=== PATIENT | male | born 1970 | race Hispanic/Latino ===

== ENCOUNTER 2021-12-07 12:30 | Outpatient (CLI) | payer OTHER | END 2021-12-07 12:31 | disposition home or self-care (01) | LOC: PET 12:30 | PROVIDERS: ATTEND Internal Medicine Hematology & Oncology | DX: C16.3 Malignant neoplasm of pyloric antrum (principal); R59.0 Localized enlarged lymph nodes | CPT/HCPCS: 78815; A9552 ==

== ENCOUNTER → 2022-03-31 | Outpatient (CLI) | payer OTHER | LOC: PET 08:00 | PROVIDERS: ATTEND Internal Medicine Hematology & Oncology | DX: C16.3 Malignant neoplasm of pyloric antrum (principal) | CPT/HCPCS: 78815; A9552 ==

== ENCOUNTER → 2022-06-22 | Outpatient (CLI) | payer OTHER | LOC: PET 09:30 | PROVIDERS: ATTEND Internal Medicine Hematology & Oncology | DX: C16.3 Malignant neoplasm of pyloric antrum (principal) | CPT/HCPCS: 78815; A9552 ==

== ENCOUNTER → 2022-08-05 | Outpatient (CLI) | payer OTHER | LOC: PET 11:45 | PROVIDERS: ATTEND Internal Medicine Hematology & Oncology | DX: C16.3 Malignant neoplasm of pyloric antrum (principal); C79.51 Secondary malignant neoplasm of bone | CPT/HCPCS: 78815; A9552 ==

== ENCOUNTER 2022-09-26 20:32 | Inpatient (IN) | payer OTHER ==
[2022-09-26 21:00] LABS: Mean Corpuscular HGB CONC 29.9 g/dL (32.0-36.0); Mean Corpuscular Hemoglobin 31.3 pg (27.0-31.0); Mean Platelet Volume 9.9 fL (7.4-10.4); RBC Distribution Width 25.3 % (11.5-14.5)
[2022-09-26 21:16] LABS: Delete Auto Diff?? YES
[2022-09-26 21:18] LABS: Manual Diff?? YES; Platelet Count 79 10x3/uL (130-400)
[2022-09-26 21:21] LABS: ALT (SGPT) 16 U/L (8-55); AST (SGOT) 29 U/L (5-34); Albumin 3.1 g/dL (3.5-5.0); Alkaline Phosphatase 767 U/L (40-110); Anion Gap 17 mmol/L (10-20); BUN (Urea Nitrogen) 14 mg/dL (8.9-20.6); Bilirubin, Total 0.8 mg/dL (0.2-1.2); Calc. Creatinine Clearance 0 mL/min (70-130); Calcium 8.4 mg/dL (7.8-10.44); Carbon Dioxide 20 mmol/L (22-29); Chloride 104 mmol/L (98-107); Estimated GFR 108; Glucose 143 mg/dL (70-105); Potassium 3.9 mmol/L (3.5-5.1); Protein, Total 6.1 g/dL (6.0-8.3); Sodium 137 mmol/L (136-145)
[2022-09-26] MEDS ORDERED: Pantoprazole 40 MG VIAL ONE (22:37)
[2022-09-26 22:42] LABS: Anisocytosis MODERATE=16-30 cells HPF (0-5); Band 18 % (5-11); CellaVision Operator ID LAB.JMM; Elliptocytes SLIGHT = 2-5 cells HPF (0-1); Large Platelets 2.9 % (0-5); Lymphocytes 32 % (21-51); Macrocytosis SLIGHT = 6-15 cells HPF (0-5); Metamyelocyte 5 % (0-0); Monocytes 4 % (0-10); Myelocyte 7 % (0-0); Neutrophil 34 % (42-75); Nucleated RBC (Manual Ct) 25 % (0); Platelet Adequacy Comment Platelets Decreased; Polychromasia MODERATE = 3-4 cells HPF (0-2); Tear Drops SLIGHT = 2-5 cells HPF (0-1); Total Cell Count 105
[2022-09-26 22:51] LABS: Mean Corpuscular Volume 104.4 fl (78.0-98.0)
[2022-09-27 00:21] VITALS: BMI 26.2
[2022-09-27] MEDS ORDERED: Ondansetron PF 4 MG/2 ML Vial IVP PRN (00:27)
[2022-09-27] MEDS ORDERED: Ondansetron ODT 4 MG TAB PO PRN (00:27)
[2022-09-27] MEDS: Acetaminophen 325 MG TAB PO PRN ×2 (01:13→06:35)
[2022-09-27] MEDS ORDERED: Fioricet 325/50/40 mg Tablet PO PRN (03:21)
[2022-09-27 06:55] LABS: Mean Corpuscular Hemoglobin 30.4 pg (27.0-31.0); RBC Distribution Width 25.5 % (11.5-14.5)
[2022-09-27 07:15] LABS: Manual Diff?? YES
[2022-09-27 07:16] LABS: Delete Auto Diff?? YES
[2022-09-27 07:48] LABS: Anion Gap 12 mmol/L (10-20); BUN (Urea Nitrogen) 11 mg/dL (8.9-20.6); Calc. Creatinine Clearance 161 mL/min (70-130); Carbon Dioxide 24 mmol/L (22-29); Chloride 104 mmol/L (98-107); Estimated GFR 114; Glucose 102 mg/dL (70-105); Potassium 3.9 mmol/L (3.5-5.1); Sodium 136 mmol/L (136-145)
[2022-09-27 08:53] LABS: Hemoglobin 6.7 g/dL (14.0-18.0); Red Blood Cell (RBC) Count 2.21 mill/uL (4.70-6.10); White Blood Cell (WBC) Count 5.6 10x3/uL (4.8-10.8)
[2022-09-27 08:55] LABS: Mean Corpuscular HGB CONC 31.9 g/dL (32.0-36.0)
[2022-09-27 08:56] LABS: Platelet Count 45 10x3/uL (130-400)
[2022-09-27 09:20] LABS: Anisocytosis MODERATE=16-30 cells HPF (0-5); Band 27 % (5-11); Hypochromia SLIGHT = 6-15 cells HPF (0-5); Large Platelets 2.9 % (0-5); Lymphocytes 14 % (21-51); Metamyelocyte 5 % (0-0); Monocytes 5 % (0-10); Myelocyte 3 % (0-0); Neutrophil 46 % (42-75); Nucleated RBC (Manual Ct) 23 % (0); Ovalocytes SLIGHT = 2-5 cells HPF (0-1); Platelet Adequacy Comment Platelets Decreased; Polychromasia MODERATE = 3-4 cells HPF (0-2); Tear Drops SLIGHT = 2-5 cells HPF (0-1); Total Cell Count 105
[2022-09-27] MEDS ORDERED: HYDROcodone/Acetaminophen 7.5/325 mg Tablet PO PRN (09:25)
[2022-09-27] MEDS ORDERED: Morphine 2 MG/ML VIAL SLOW IVP SCH (13:15)
[2022-09-27 15:10] LABS: Hemoglobin 8.4 g/dL (14.0-18.0)
[2022-09-27] MEDS ORDERED: Methocarbamol 500 MG TAB PO SCH (15:18)
[2022-09-27 17:52] VITALS: BP 128/75; TEMP 99.7
[2022-09-27] MEDS ORDERED: traMADol HCl 50 MG TAB PO SCH (18:00)
== END 2022-09-27 19:50 | disposition home or self-care (01) | DRG 543 ==
LOC: ERS 20:32 → T4-B 23:14
PROVIDERS: ADMIT Student in an Organized Health Care Education/Training Program; ATTEND Internal Medicine
PROC: 30233N1 Transfusion of Nonautologous Red Blood Cells into Peripheral Vein, Percutaneous Approach (ICD-10-PCS; principal; 2022-09-26)
DX: C79.52 Secondary malignant neoplasm of bone marrow (principal); C16.9 Malignant neoplasm of stomach, unspecified; Z79.899 Other long term (current) drug therapy; D69.6 Thrombocytopenia, unspecified; M54.2 Cervicalgia; D63.0 Anemia in neoplastic disease
CPT/HCPCS: 36415; 36430; 70450; 80048; 85025; 86850; 86900; 86901; 96374; C9113; J2272; P9016

== ENCOUNTER 2022-10-18 13:41 | Day surgery (SDC) | payer OTHER ==
[2022-10-18] MEDS ORDERED: diphenhydrAMINE 25 MG CAP PO SCH (14:00)
[2022-10-18] MEDS ORDERED: Acetaminophen 500 MG TAB PO SCH (14:00)
[2022-10-18] MEDS ORDERED: Acetaminophen 500 MG TAB ONE (14:10)
[2022-10-18] MEDS ORDERED: diphenhydrAMINE 25 MG CAP ONE (14:10)
[2022-10-18 17:03] VITALS: BP 122/67; TEMP 98.7
== END 2022-10-18 17:12 | disposition home or self-care (01) ==
LOC: ONC/OP 13:41
PROVIDERS: ATTEND Internal Medicine Hematology & Oncology
DX: D64.9 Anemia, unspecified (principal); D69.6 Thrombocytopenia, unspecified
CPT/HCPCS: 36430; 86850; 86900; 86901; P9016

== ENCOUNTER 2022-10-19 08:35 | Day surgery (SDC) | payer OTHER ==
[2022-10-19] MEDS ORDERED: diphenhydrAMINE 25 MG CAP ONE (08:44)
[2022-10-19] MEDS ORDERED: Acetaminophen 500 MG TAB ONE (08:44)
[2022-10-19] MEDS ORDERED: diphenhydrAMINE 25 MG CAP PO SCH (08:45)
[2022-10-19] MEDS ORDERED: Acetaminophen 500 MG TAB PO SCH (08:45)
[2022-10-19 11:45] VITALS: BP 141/74; TEMP 98.3
== END 2022-10-19 11:46 | disposition home or self-care (01) ==
LOC: ONC/OP 08:35
PROVIDERS: ATTEND Internal Medicine Hematology & Oncology
DX: D64.9 Anemia, unspecified (principal); D69.6 Thrombocytopenia, unspecified
CPT/HCPCS: 36430; 86850; 86900; 86901; P9016

== ENCOUNTER 2022-11-01 09:23 | Day surgery (SDC) | payer OTHER ==
[2022-11-01] MEDS ORDERED: diphenhydrAMINE 25 MG CAP PO SCH (09:45)
[2022-11-01] MEDS ORDERED: diphenhydrAMINE 25 MG CAP ONE (09:51)
[2022-11-01 15:41] VITALS: BP 138/74; TEMP 98.2
== END 2022-11-01 15:43 | disposition home or self-care (01) ==
LOC: ONC/OP 09:23
PROVIDERS: ATTEND Internal Medicine Hematology & Oncology
DX: D64.9 Anemia, unspecified (principal); D69.6 Thrombocytopenia, unspecified
CPT/HCPCS: 36430; 86850; 86900; 86901; J1642; P9016

== ENCOUNTER 2022-11-04 16:03 | Inpatient (IN) | payer OTHER ==
[~2022-11-04 16:03] MED LIST: Iopamidol-370 76% 500 ML MDV (1 ML CHARGE) ONE
[2022-11-04 16:41] LABS: Hematocrit 18.7 % (42.0-52.0); Mean Corpuscular HGB CONC 32.1 g/dL (32.0-36.0); Mean Corpuscular Hemoglobin 31.6 pg (27.0-31.0); Mean Corpuscular Volume 98.4 fl (78.0-98.0); Mean Platelet Volume 10.5 fL (7.4-10.4); RBC Distribution Width 24.7 % (11.5-14.5); White Blood Cell (WBC) Count 5.6 10x3/uL (4.8-10.8)
[2022-11-04 16:42] LABS: Delete Auto Diff?? YES; Manual Diff?? YES; Platelet Count 27 10x3/uL (130-400)
[2022-11-04 16:58] LABS: INR-International Normal Ratio 1.4; PTT 48.1 sec (22.9-36.1); Prothrombin Time 17.7 sec (12.0-14.7)
[2022-11-04 17:03] LABS: ALT (SGPT) 27 U/L (8-55); AST (SGOT) 37 U/L (5-34); Albumin 2.9 g/dL (3.5-5.0); Alkaline Phosphatase 954 U/L (40-110); Anion Gap 13 mmol/L (10-20); BUN (Urea Nitrogen) 21 mg/dL (8.9-20.6); Bilirubin, Total 0.9 mg/dL (0.2-1.2); Calc. Creatinine Clearance 0 mL/min (70-130); Calcium 8.2 mg/dL (7.8-10.44); Carbon Dioxide 19 mmol/L (22-29); Chloride 106 mmol/L (98-107); Estimated GFR 116; Globulin 2.7 g/dL (2.4-3.5); Glucose 116 mg/dL (70-105); Potassium 4.1 mmol/L (3.5-5.1); Protein, Total 5.6 g/dL (6.0-8.3); Sodium 134 mmol/L (136-145)
[2022-11-04 17:07] LABS: Troponin I Less than 0.010 ng/mL (< 0.028)
[2022-11-04 17:07] LABS: Anisocytosis SLIGHT = 6-15 cells HPF (0-5); Band 39 % (5-11); CellaVision Operator ID LAB.KB; Eosinophils 1 % (0-10); Large Platelets 1.9 % (0-5); Lymphocytes 11 % (21-51); Macrocytosis SLIGHT = 6-15 cells HPF (0-5); Monocytes 4 % (0-10); Myelocyte 1 % (0-0); Neutrophil 43 % (42-75); Nucleated RBC (Manual Ct) 9 % (0); Ovalocytes SLIGHT = 2-5 cells HPF (0-1); Platelet Adequacy Comment Significant decrease; Polychromasia MODERATE = 3-4 cells HPF (0-2); Smudge Cells 5.7 %; Tear Drops SLIGHT = 2-5 cells HPF (0-1); Total Cell Count 105
[2022-11-04 17:13] LABS: D-Dimer Test Greater than 20.00 *mcg/mL (0.27-0.43)
[2022-11-04 19:10] LABS: Bacteria/HPF None Seen HPF (None Seen); Bilirubin Negative (Negative); Blood, Urine Negative (Negative); CAUTI Indications for Culture Acute Hematuria; Clarity Clear (Clear); Glucose, Urine (Dipstick) Normal (Negative); Ketone, Urine Negative (Negative); Leukocyte Negative Leu/uL (Negative); Nitrite Negative (Negative); Protein, Urine (Dipstick) 10 mg/dL (Neg-Trace); RBC/HPF None Seen HPF (0-3); Specific Gravity, Urine 1.026 (1.002-1.036); Squamous Epithelial None Seen HPF (0-3); Urobilinogen 6 mg/dL (Less than 2); WBC/HPF 0-3 HPF (0-3)
[2022-11-04 19:13] LABS: Urine Culture Reflex No No
[2022-11-04] MEDS ORDERED: fentaNYL 50 mcg/mL 1 mL Vial ONE (19:43)
[2022-11-04] MEDS ORDERED: Pantoprazole 40 MG VIAL ONE (21:41)
[2022-11-04] MEDS ORDERED: Ondansetron PF 4 MG/2 ML Vial IVP PRN (21:56)
[2022-11-04] MEDS ORDERED: Ondansetron ODT 4 MG TAB PO PRN (21:56)
[2022-11-04] MEDS ORDERED: Acetaminophen 650 MG Suppository PR PRN (21:56)
[2022-11-04 23:59] VITALS: BMI 26.9
[2022-11-05] MEDS ORDERED: Morphine 2 MG/ML VIAL SLOW IVP PRN (00:10)
[2022-11-05 02:11] LABS: #Eosinphils 0.1 thou/uL (0.0-0.7); #Monocytes 0.7 thou/uL (0.11-0.59); #Neutrophils 4.3 thou/uL (1.40-6.50); %Basophils 0.6 % (0.0-1.0); %Eosinophils 1.7 % (0.0-10.0); %Monocytes 10.2 % (0.0-10.0); %Neutrophils 64.5 % (42.0-75.0); Hematocrit 23.7 % (42.0-52.0); Hemoglobin 7.7 g/dL (14.0-18.0); Mean Corpuscular HGB CONC 32.5 g/dL (32.0-36.0); Mean Corpuscular Hemoglobin 30.7 pg (27.0-31.0); RBC Distribution Width 22.6 % (11.5-14.5); Red Blood Cell (RBC) Count 2.51 mill/uL (4.70-6.10); White Blood Cell (WBC) Count 6.7 10x3/uL (4.8-10.8)
[2022-11-05 02:13] LABS: Platelet Count 25 10x3/uL (130-400)
[2022-11-05 02:14] LABS: Mean Corpuscular Volume 94.4 fl (78.0-98.0)
[2022-11-05] MEDS ORDERED: Electrolyte Replacement Protocol 1 EACH FS SCH (02:15)
[2022-11-05] MEDS: Morphine 2 MG/ML VIAL SLOW IVP PRN ×3 (02:17→20:33)
[2022-11-05] MEDS: Acetaminophen 325 MG TAB PO PRN ×2 (02:17→08:09)
[2022-11-05 02:35] LABS: Anion Gap 12 mmol/L (10-20); BUN (Urea Nitrogen) 17 mg/dL (8.9-20.6); Calc. Creatinine Clearance 179 mL/min (70-130); Calcium 8.2 mg/dL (7.8-10.44); Carbon Dioxide 19 mmol/L (22-29); Chloride 108 mmol/L (98-107); Estimated GFR 117; Glucose 114 mg/dL (70-105); Potassium 4.1 mmol/L (3.5-5.1); Sodium 135 mmol/L (136-145)
[2022-11-05] MEDS: Pantoprazole 40 MG VIAL IVP SCH (08:08)
[2022-11-05 08:21] LABS: Hematocrit 25.1 % (42.0-52.0); Mean Corpuscular HGB CONC 31.9 g/dL (32.0-36.0); Mean Corpuscular Hemoglobin 30.9 pg (27.0-31.0); Mean Corpuscular Volume 96.9 fl (78.0-98.0); RBC Distribution Width 23.6 % (11.5-14.5); Red Blood Cell (RBC) Count 2.59 mill/uL (4.70-6.10); White Blood Cell (WBC) Count 6.8 10x3/uL (4.8-10.8)
[2022-11-05 08:27] LABS: Platelet Count 30 10x3/uL (130-400)
[2022-11-05] MEDS: HYDROcodone/Acetaminophen 5/325 mg Tablet PO PRN ×2 (12:40→18:47)
[2022-11-05 17:35] LABS: Hematocrit 24.5 % (42.0-52.0); Mean Corpuscular HGB CONC 32.7 g/dL (32.0-36.0); Mean Platelet Volume 10.2 fL (7.4-10.4); RBC Distribution Width 23.3 % (11.5-14.5); Red Blood Cell (RBC) Count 2.58 mill/uL (4.70-6.10)
[2022-11-05 17:52] LABS: Platelet Count 41 10x3/uL (130-400)
[2022-11-05 20:08] LABS: ALT (SGPT) 26 U/L (8-55); AST (SGOT) 41 U/L (5-34); Albumin 2.9 g/dL (3.5-5.0); Alkaline Phosphatase 953 U/L (40-110); Anion Gap 18 mmol/L (10-20); BUN (Urea Nitrogen) 12 mg/dL (8.9-20.6); Bilirubin, Total 1.1 mg/dL (0.2-1.2); Calc. Creatinine Clearance 179 mL/min (70-130); Calcium 8.2 mg/dL (7.8-10.44); Carbon Dioxide 15 mmol/L (22-29); Chloride 104 mmol/L (98-107); Estimated GFR 117; Globulin 2.8 g/dL (2.4-3.5); Glucose 87 mg/dL (70-105); Magnesium 2.1 mg/dL (1.6-2.6); Potassium 4.2 mmol/L (3.5-5.1); Protein, Total 5.7 g/dL (6.0-8.3); Sodium 133 mmol/L (136-145)
[2022-11-05] MEDS ORDERED: Lactated Ringer's 1,000 ML IV SCH (21:00)
[2022-11-06 00:21] LABS: Hematocrit 22.4 % (42.0-52.0); Hemoglobin 7.3 g/dL (14.0-18.0); Mean Corpuscular HGB CONC 32.6 g/dL (32.0-36.0); Mean Corpuscular Hemoglobin 30.9 pg (27.0-31.0); Mean Corpuscular Volume 94.9 fl (78.0-98.0); Mean Platelet Volume 9.4 fL (7.4-10.4); Red Blood Cell (RBC) Count 2.36 mill/uL (4.70-6.10); White Blood Cell (WBC) Count 7.4 10x3/uL (4.8-10.8)
[2022-11-06 00:23] LABS: Platelet Count 42 10x3/uL (130-400)
[2022-11-06] MEDS: Acetaminophen 325 MG TAB PO PRN (03:45)
[2022-11-06] MEDS: Morphine 2 MG/ML VIAL SLOW IVP PRN ×2 (03:45→16:46)
[2022-11-06 05:41] LABS: Hemoglobin 6.9 g/dL (14.0-18.0); Mean Corpuscular HGB CONC 32.9 g/dL (32.0-36.0); Mean Corpuscular Hemoglobin 31.5 pg (27.0-31.0); Mean Corpuscular Volume 95.9 fl (78.0-98.0); Mean Platelet Volume 10.2 fL (7.4-10.4); RBC Distribution Width 23.1 % (11.5-14.5); Red Blood Cell (RBC) Count 2.19 mill/uL (4.70-6.10); White Blood Cell (WBC) Count 6.7 10x3/uL (4.8-10.8)
[2022-11-06 05:48] LABS: Delete Auto Diff?? YES; Manual Diff?? YES; Platelet Count 37 10x3/uL (130-400)
[2022-11-06 05:50] LABS: Anion Gap 14 mmol/L (10-20); BUN (Urea Nitrogen) 12 mg/dL (8.9-20.6); Calc. Creatinine Clearance 182 mL/min (70-130); Calcium 7.9 mg/dL (7.8-10.44); Carbon Dioxide 18 mmol/L (22-29); Chloride 102 mmol/L (98-107); Estimated GFR 118; Glucose 110 mg/dL (70-105); Potassium 3.7 mmol/L (3.5-5.1); Sodium 130 mmol/L (136-145)
[2022-11-06 06:12] LABS: Anisocytosis SLIGHT = 6-15 cells HPF (0-5); Band 14 % (5-11); CellaVision Operator ID lab.abc; Eosinophils 2 % (0-10); Large Platelets 1.9 % (0-5); Lymphocytes 15 % (21-51); Metamyelocyte 3 % (0-0); Monocytes 6 % (0-10); Myelocyte 2 % (0-0); Neutrophil 59 % (42-75); Nucleated RBC (Manual Ct) 3 % (0); Platelet Adequacy Comment Platelets Decreased; Polychromasia MODERATE = 3-4 cells HPF (0-2); Smudge Cells 8.7 %; Tear Drops SLIGHT = 2-5 cells HPF (0-1); Total Cell Count 104
[2022-11-06] MEDS ORDERED: Fioricet 325/50/40 mg Tablet PO PRN (09:13)
[2022-11-06] MEDS: Pantoprazole 40 MG VIAL IVP SCH (09:19)
[2022-11-06] MEDS ORDERED: Fioricet 325/50/40 mg Tablet PO SCH (09:30)
[2022-11-06 16:37] VITALS: BP 144/71; TEMP 99
[2022-11-06 17:15] LABS: Hematocrit 23.7 % (42.0-52.0); Hemoglobin 7.8 g/dL (14.0-18.0); Mean Corpuscular HGB CONC 32.9 g/dL (32.0-36.0); Mean Corpuscular Hemoglobin 31.1 pg (27.0-31.0); Mean Corpuscular Volume 94.4 fl (78.0-98.0); Mean Platelet Volume 9.3 fL (7.4-10.4); Platelet Count 54 10x3/uL (130-400); RBC Distribution Width 22.9 % (11.5-14.5); Red Blood Cell (RBC) Count 2.51 mill/uL (4.70-6.10)
== END 2022-11-06 20:30 | disposition home or self-care (01) | DRG 175 ==
LOC: ERS 16:03 → CCU 21:30 → SURG B 11-05 14:21
PROVIDERS: ADMIT Student in an Organized Health Care Education/Training Program; ATTEND Family Medicine
PROC: 30233N1 Transfusion of Nonautologous Red Blood Cells into Peripheral Vein, Percutaneous Approach (ICD-10-PCS; principal; 2022-11-04)
PROC: 6A550Z2 Pheresis of Platelets, Single (ICD-10-PCS; 2022-11-05)
PROC: 30233R1 Transfusion of Nonautologous Platelets into Peripheral Vein, Percutaneous Approach (ICD-10-PCS; 2022-11-06)
DX: I26.99 Other pulmonary embolism without acute cor pulmonale (principal); I62.03 Nontraumatic chronic subdural hemorrhage; D62 Acute posthemorrhagic anemia; C16.9 Malignant neoplasm of stomach, unspecified; C79.51 Secondary malignant neoplasm of bone; K92.1 Melena; Q22.1 Congenital pulmonary valve stenosis; K92.2 Gastrointestinal hemorrhage, unspecified; D69.6 Thrombocytopenia, unspecified; R16.1 Splenomegaly, not elsewhere classified; I27.20 Pulmonary hypertension, unspecified; R60.0 Localized edema; Z92.21 Personal history of antineoplastic chemotherapy; Z98.890 Other specified postprocedural states; Z79.899 Other long term (current) drug therapy
CPT/HCPCS: 36415; 36416; 36430; 70450; 71045; 71275; 80048; 80053; 81001; 82274; 83605; 83735; 84484; 85025; 85379; 85610; 85730; 86850; 86900; 86901; 93005; 93010; 93306; 93970; C9113; J2272; J3010; J7120; P9016; P9035; Q9967

== ENCOUNTER 2022-11-15 10:24 | Day surgery (SDC) | payer OTHER ==
[2022-11-15] MEDS ORDERED: Acetaminophen 500 MG TAB PO SCH ×2 (11:00→15:15)
[2022-11-15] MEDS ORDERED: diphenhydrAMINE 25 MG CAP PO SCH (11:00)
[2022-11-15] MEDS ORDERED: diphenhydrAMINE 25 MG CAP ONE (11:01)
[2022-11-15] MEDS ORDERED: Acetaminophen 500 MG TAB ONE ×2 (11:01→15:17)
[2022-11-15 16:42] VITALS: BP 140/75; TEMP 98.5
== END 2022-11-15 16:43 | disposition home or self-care (01) ==
LOC: ONC/OP 10:24
PROVIDERS: ATTEND Internal Medicine Hematology & Oncology
DX: D64.9 Anemia, unspecified (principal); D69.59 Other secondary thrombocytopenia
CPT/HCPCS: 36430; 86850; 86900; 86901; J1642; P9016

== ENCOUNTER 2022-11-17 09:27 | Day surgery (SDC) | payer OTHER ==
[2022-11-17] MEDS ORDERED: diphenhydrAMINE 25 MG CAP PO SCH (09:45)
[2022-11-17] MEDS ORDERED: Acetaminophen 500 MG TAB PO SCH ×2 (09:45→15:00)
[2022-11-17] MEDS ORDERED: Acetaminophen 500 MG TAB ONE ×2 (10:03→15:09)
[2022-11-17] MEDS ORDERED: diphenhydrAMINE 25 MG CAP ONE (10:03)
[2022-11-17] MEDS ORDERED: diphenhydrAMINE 50 MG/ML VIAL ONE (11:47)
[2022-11-17] MEDS ORDERED: diphenhydrAMINE 50 MG/ML VIAL IVP SCH (12:00)
[2022-11-17 16:56] VITALS: BP 140/75; TEMP 97.7
== END 2022-11-17 17:00 | disposition short-term general hospital (02) ==
LOC: ONC/OP 09:27
PROVIDERS: ATTEND Internal Medicine Hematology & Oncology
DX: D64.9 Anemia, unspecified (principal); D69.6 Thrombocytopenia, unspecified
CPT/HCPCS: 36430; 86850; 86900; 86901; 96374; 99212; G0463; J1200; P9016; P9035

== ENCOUNTER 2022-11-17 17:10 | Emergency (ER) | payer OTHER ==
[2022-11-17 18:07] LABS: Hematocrit 25.1 % (42.0-52.0); Hemoglobin 8.8 g/dL (14.0-18.0); Mean Corpuscular HGB CONC 35.1 g/dL (32.0-36.0); Mean Corpuscular Hemoglobin 34.2 pg (27.0-31.0); Mean Corpuscular Volume 97.7 fl (78.0-98.0); Mean Platelet Volume 9.6 fL (7.4-10.4); RBC Distribution Width 26.2 % (11.5-14.5); Red Blood Cell (RBC) Count 2.57 mill/uL (4.70-6.10); White Blood Cell (WBC) Count 9.3 10x3/uL (4.8-10.8)
[2022-11-17 18:14] LABS: Platelet Count 42 10x3/uL (130-400)
[2022-11-17 18:15] LABS: Delete Auto Diff?? YES; Manual Diff?? YES
[2022-11-17 18:19] LABS: INR-International Normal Ratio 1.4; PTT 42.5 sec (22.9-36.1); Prothrombin Time 17.9 sec (12.0-14.7)
[2022-11-17 18:30] LABS: ALT (SGPT) 38 U/L (8-55); AST (SGOT) 51 U/L (5-34); Albumin 3.1 g/dL (3.5-5.0); Alkaline Phosphatase 1221 U/L (40-110); Anion Gap 15 mmol/L (10-20); BUN (Urea Nitrogen) 18 mg/dL (8.9-20.6); Bilirubin, Total 1.4 mg/dL (0.2-1.2); Calc. Creatinine Clearance 0 mL/min (70-130); Calcium 8.8 mg/dL (7.8-10.44); Carbon Dioxide 20 mmol/L (22-29); Chloride 105 mmol/L (98-107); Estimated GFR 113; Globulin 3.2 g/dL (2.4-3.5); Glucose 142 mg/dL (70-105); Potassium 4.2 mmol/L (3.5-5.1); Protein, Total 6.3 g/dL (6.0-8.3); Sodium 136 mmol/L (136-145)
[2022-11-17 18:57] LABS: Anisocytosis MODERATE=16-30 cells HPF (0-5); Band 30 % (5-11); Burr Cells SLIGHT = 2-5 cells HPF (0-1); CellaVision Operator ID LAB.KB; Eosinophils 1 % (0-10); Lymphocytes 13 % (21-51); Monocytes 5 % (0-10); Myelocyte 4 % (0-0); Neutrophil 46 % (42-75); Nucleated RBC (Manual Ct) 11 % (0); Ovalocytes SLIGHT = 2-5 cells HPF (0-1); Platelet Adequacy Comment Platelets Decreased; Poikilocytosis SLIGHT = 6-15 cells HPF (0-5); Polychromasia MODERATE = 3-4 cells HPF (0-2); Reactive Lymphocytes 1 % (0-10); Smudge Cells 12.6 %; Tear Drops SLIGHT = 2-5 cells HPF (0-1); Total Cell Count 103
[2022-11-17 20:19] LABS: Bacteria/HPF None Seen HPF (None Seen); Bilirubin Negative (Negative); Blood, Urine Negative (Negative); CAUTI Indications for Culture Acute Hematuria; Clarity Clear (Clear); Glucose, Urine (Dipstick) Normal (Negative); Ketone, Urine Negative (Negative); Leukocyte Negative Leu/uL (Negative); Nitrite Negative (Negative); Protein, Urine (Dipstick) 30 mg/dL (Neg-Trace); RBC/HPF 0-3 HPF (0-3); Specific Gravity, Urine 1.035 (1.002-1.036); Squamous Epithelial None Seen HPF (0-3); WBC/HPF 0-3 HPF (0-3)
[2022-11-17 20:20] LABS: Urine Culture Reflex No No
[2022-11-17] MEDS ORDERED: Acetaminophen 325 MG TAB ONE (20:33)
== END 2022-11-17 21:14 | disposition home or self-care (01) ==
LOC: ERS 17:10
DX: D64.9 Anemia, unspecified (principal)
CPT/HCPCS: 36415; 80053; 81001; 85025; 85610; 85730; 93005

== ENCOUNTER 2022-11-22 12:24 | Inpatient (IN) | payer OTHER ==
[2022-11-22 14:41] LABS: Hematocrit 14.9 % (42.0-52.0); Hemoglobin 4.5 g/dL (14.0-18.0); Mean Corpuscular HGB CONC 30.2 g/dL (32.0-36.0); Mean Corpuscular Hemoglobin 30.8 pg (27.0-31.0); Mean Corpuscular Volume 102.1 fl (78.0-98.0); RBC Distribution Width 27.4 % (11.5-14.5); Red Blood Cell (RBC) Count 1.46 mill/uL (4.70-6.10)
[2022-11-22 14:47] LABS: Delete Auto Diff?? YES; Manual Diff?? YES; Platelet Count 23 10x3/uL (130-400)
[2022-11-22] MEDS ORDERED: Pantoprazole 40 MG VIAL ONE (14:56)
[2022-11-22 15:01] LABS: ALT (SGPT) 62 U/L (8-55); AST (SGOT) 82 U/L (5-34); Albumin 2.8 g/dL (3.5-5.0); Alkaline Phosphatase 1769 U/L (40-110); Anion Gap 16 mmol/L (10-20); BUN (Urea Nitrogen) 32 mg/dL (8.9-20.6); Bilirubin, Total 1.7 mg/dL (0.2-1.2); Calc. Creatinine Clearance 0 mL/min (70-130); Calcium 8.2 mg/dL (7.8-10.44); Carbon Dioxide 18 mmol/L (22-29); Chloride 104 mmol/L (98-107); Estimated GFR 106; Globulin 2.9 g/dL (2.4-3.5); Glucose 156 mg/dL (70-105); Potassium 5.2 mmol/L (3.5-5.1); Protein, Total 5.7 g/dL (6.0-8.3); Sodium 133 mmol/L (136-145)
[2022-11-22 15:12] LABS: Anisocytosis MODERATE=16-30 cells HPF (0-5); Band 23 % (5-11); CellaVision Operator ID LAB.KB; Eosinophils 2 % (0-10); Hypochromia SLIGHT = 6-15 cells HPF (0-5); Lymphocytes 14 % (21-51); Macrocytosis SLIGHT = 6-15 cells HPF (0-5); Monocytes 4 % (0-10); Myelocyte 4 % (0-0); Neutrophil 53 % (42-75); Nucleated RBC (Manual Ct) 23 % (0); Platelet Adequacy Comment Significant decrease; Polychromasia SLIGHT = 2-3 cells HPF (0-2); Schistocytes SLIGHT = 2-5 cells HPF (0-1); Smudge Cells 10.8 %; Total Cell Count 102
[2022-11-22] MEDS ORDERED: Cefepime 2 GM VIAL ONE (16:10)
[2022-11-22 16:42] LABS: Actual Bicarbonate (HCO3v) 19.3 mEq/L (22-28); Base Excess -3.4 mEq/L (-2.0 to +3.0); Calcium, Ionized (venous) 0.98 mmol/L (1.16-1.32); Chloride (VBG) 108 mmol/L (98-106); Hematocrit-VBG 16 % (42.0-52.0); Potassium (VBG) 4.91 mmol/L (3.70-5.30); pH (venous) 7.515 (7.32-7.43)
[2022-11-22] MEDS ORDERED: VANCOMYCIN 2 GRAM/500 ML BAG 2 GM in Premix Bag 1 BAG IVPB SCH (17:15)
[2022-11-22] MEDS ORDERED: Ondansetron PF 4 MG/2 ML Vial IVP PRN (17:28)
[2022-11-22] MEDS ORDERED: Acetaminophen 325 MG TAB PO PRN (17:28)
[2022-11-22] MEDS ORDERED: Ondansetron ODT 4 MG TAB PO PRN (17:28)
[2022-11-22 19:00] LABS: Bacteria/HPF None Seen HPF (None Seen); Bilirubin Negative (Negative); Blood, Urine Negative (Negative); Clarity Clear (Clear); Glucose, Urine (Dipstick) Normal (Negative); Ketone, Urine Negative (Negative); Leukocyte Negative Leu/uL (Negative); Nitrite Negative (Negative); Protein, Urine (Dipstick) 20 mg/dL (Neg-Trace); RBC/HPF 0-3 HPF (0-3); Specific Gravity, Urine 1.021 (1.002-1.036); Squamous Epithelial 0-3 HPF (0-3); Urobilinogen Greater than 12 mg/dL (Less than 2); WBC/HPF 0-3 HPF (0-3); pH, Urine 5.5 (5.0-9.0)
[2022-11-22] MEDS ORDERED: Famotidine/PF 20 mg/2ml Vial SLOW IVP SCH (21:00)
[2022-11-22] MEDS: Lactated Ringer's 1,000 ML IV SCH (21:18)
[2022-11-22] MEDS: Pregabalin 50 MG CAP PO SCH (21:18)
[2022-11-22] MEDS: Pantoprazole 40 MG VIAL IVP SCH (21:18)
[2022-11-22 22:19] VITALS: BMI 24.7
[2022-11-22] MEDS ORDERED: Dextrose 5% in Water 1,000 ML IV PRN (22:39)
[2022-11-22] MEDS ORDERED: Glucagon 1 MG/ML KIT IM PRN (22:39)
[2022-11-22] MEDS ORDERED: Dextrose 50% Abboject 50 ML SYRINGE SLOW IVP PRN (22:39)
[2022-11-22] MEDS ORDERED: Electrolyte Replacement Protocol 1 EACH FS PRN (22:39)
[2022-11-23 00:06] LABS: Platelet Count 29 10x3/uL (130-400)
[2022-11-23 00:11] LABS: Fibrinogen 294 mg/dL (253-463)
[2022-11-23 00:12] LABS: INR-International Normal Ratio 1.6; PTT 36.2 sec (22.9-36.1); Prothrombin Time 20.1 sec (12.0-14.7)
[2022-11-23 00:28] LABS: D-Dimer Test Greater than 20.00 *mcg/mL (0.27-0.43)
[2022-11-23 01:09] LABS: Hematocrit 20.2 % (42.0-52.0)
[2022-11-23 01:10] LABS: Platelet Count 29 10x3/uL (130-400)
[2022-11-23 02:49] LABS: Hematocrit 19.5 % (42.0-52.0); Hemoglobin 6.8 g/dL (14.0-18.0); Mean Corpuscular HGB CONC 34.9 g/dL (32.0-36.0); Mean Corpuscular Hemoglobin 33.7 pg (27.0-31.0); Mean Platelet Volume 8.3 fL (7.4-10.4); RBC Distribution Width 21.2 % (11.5-14.5); Red Blood Cell (RBC) Count 2.02 mill/uL (4.70-6.10); White Blood Cell (WBC) Count 9.1 10x3/uL (4.8-10.8)
[2022-11-23 02:57] LABS: Delete Auto Diff?? YES; Manual Diff?? YES; Mean Corpuscular Volume 96.5 fl (78.0-98.0); Platelet Count 28 10x3/uL (130-400)
[2022-11-23 03:21] LABS: ALT (SGPT) 61 U/L (8-55); AST (SGOT) 95 U/L (5-34); Albumin 2.4 g/dL (3.5-5.0); Alkaline Phosphatase 1389 U/L (40-110); Anion Gap 12 mmol/L (10-20); BUN (Urea Nitrogen) 25 mg/dL (8.9-20.6); Bilirubin, Total 1.9 mg/dL (0.2-1.2); Calc. Creatinine Clearance 159 mL/min (70-130); Calcium 7.9 mg/dL (7.8-10.44); Carbon Dioxide 18 mmol/L (22-29); Chloride 109 mmol/L (98-107); Estimated GFR 116; Globulin 2.5 g/dL (2.4-3.5); Glucose 126 mg/dL (70-105); Protein, Total 4.9 g/dL (6.0-8.3); Sodium 135 mmol/L (136-145)
[2022-11-23 03:48] LABS: Band 20 % (5-11); CellaVision Operator ID lab.abc; Eosinophils 1 % (0-10); Large Platelets 1.8 % (0-5); Lymphocytes 13 % (21-51); Metamyelocyte 6 % (0-0); Monocytes 3 % (0-10); Myelocyte 6 % (0-0); Neutrophil 52 % (42-75); Nucleated RBC (Manual Ct) 18 % (0); Platelet Adequacy Comment Platelets Decreased; Polychromasia SLIGHT = 2-3 cells HPF (0-2); Smudge Cells 9.2 %; Total Cell Count 109
[2022-11-23] MEDS: Cefepime 2 GM in Sodium Chloride 0.9% 100 ML IVPB SCH ×2 (05:07→16:50)
[2022-11-23] MEDS ORDERED: Magnesium 2 GM/50 ML(in water) 2 GM in Premix Bag 1 BAG IVPB SCH (08:00)
[2022-11-23] MEDS: Pregabalin 50 MG CAP PO SCH ×2 (09:13→21:32)
[2022-11-23] MEDS: HYDROcodone/Acetaminophen 5/325 mg Tablet PO PRN ×4 (09:13→23:12)
[2022-11-23] MEDS: Pantoprazole 40 MG VIAL IVP SCH ×2 (09:14→21:32)
[2022-11-23 11:09] LABS: Hematocrit 22.4 % (42.0-52.0); Hemoglobin 7.8 g/dL (14.0-18.0)
[2022-11-23 11:13] LABS: Platelet Count 20 10x3/uL (130-400)
[2022-11-23] MEDS: Lactated Ringer's 1,000 ML IV SCH (12:36)
[2022-11-23 13:16] LABS: Legionella Urinary Ag Negative (Negative); Strep pneumo Urine Ag NEGATIVE (NEGATIVE)
[2022-11-23 15:24] LABS: Hematocrit 22.7 % (42.0-52.0); Hemoglobin 7.9 g/dL (14.0-18.0); Platelet Count 17 10x3/uL (130-400)
[2022-11-23] MEDS: fentaNYL 50 mcg/hour Patch TD SCH (21:32)
[2022-11-24] MEDS: Cefepime 2 GM in Sodium Chloride 0.9% 100 ML IVPB SCH ×2 (03:31→16:02)
[2022-11-24 09:19] LABS: Hemoglobin (Hb) 5.3 g/dL (13.1-17.2)
[2022-11-24] MEDS: Pantoprazole 40 MG VIAL IVP SCH ×2 (09:19→20:46)
[2022-11-24] MEDS: Lactated Ringer's 1,000 ML IV SCH (09:19)
[2022-11-24] MEDS: Pregabalin 50 MG CAP PO SCH ×2 (09:19→20:33)
[2022-11-24 09:34] LABS: Hematocrit 20.3 % (42.0-52.0); Hemoglobin 7.1 g/dL (14.0-18.0); Mean Corpuscular Hemoglobin 34.5 pg (27.0-31.0); Mean Corpuscular Volume 98.5 fl (78.0-98.0); Mean Platelet Volume 9.6 fL (7.4-10.4); RBC Distribution Width 23.6 % (11.5-14.5); Red Blood Cell (RBC) Count 2.06 mill/uL (4.70-6.10)
[2022-11-24 09:41] LABS: ALT (SGPT) 55 U/L (8-55); AST (SGOT) 79 U/L (5-34); Albumin 2.7 g/dL (3.5-5.0); Alkaline Phosphatase 1567 U/L (40-110); Anion Gap 14 mmol/L (10-20); BUN (Urea Nitrogen) 15 mg/dL (8.9-20.6); Calc. Creatinine Clearance 172 mL/min (70-130); Calcium 8.6 mg/dL (7.8-10.44); Carbon Dioxide 18 mmol/L (22-29); Chloride 105 mmol/L (98-107); Estimated GFR 119; Globulin 2.8 g/dL (2.4-3.5); Glucose 158 mg/dL (70-105); Platelet Count 37 10x3/uL (130-400); Potassium 3.7 mmol/L (3.5-5.1); Protein, Total 5.5 g/dL (6.0-8.3); Sodium 133 mmol/L (136-145)
[2022-11-24 09:42] LABS: Delete Auto Diff?? YES; Manual Diff?? YES
[2022-11-24 10:14] LABS: Band 23 % (5-11); CellaVision Operator ID LAB.GE; Helmet Cells SLIGHT = 2-5 cells HPF (0-1); Lymphocytes 9 % (21-51); Metamyelocyte 2 % (0-0); Monocytes 7 % (0-10); Myelocyte 6 % (0-0); Neutrophil 53 % (42-75); Nucleated RBC (Manual Ct) 27 % (0); Platelet Adequacy Comment Platelets Decreased; Polychromasia MARKED = >4 cells HPF (0-2); Schistocytes MODERATE= 6-15 cells HPF (0-1); Total Cell Count 106
[2022-11-24] MEDS: HYDROcodone/Acetaminophen 5/325 mg Tablet PO PRN (17:47)
[2022-11-24] MEDS: Fioricet 325/50/40 mg Tablet PO PRN (21:00)
[2022-11-25] MEDS: Fioricet 325/50/40 mg Tablet PO PRN (03:36)
[2022-11-25] MEDS: Cefepime 2 GM in Sodium Chloride 0.9% 100 ML IVPB SCH ×2 (03:38→17:08)
[2022-11-25 07:11] LABS: Hemoglobin 5.7 g/dL (14.0-18.0); Mean Corpuscular HGB CONC 33.5 g/dL (32.0-36.0); Mean Corpuscular Hemoglobin 32.6 pg (27.0-31.0); Mean Corpuscular Volume 97.1 fl (78.0-98.0); Mean Platelet Volume 9.6 fL (7.4-10.4); RBC Distribution Width 23.9 % (11.5-14.5); Red Blood Cell (RBC) Count 1.75 mill/uL (4.70-6.10); White Blood Cell (WBC) Count 6.9 10x3/uL (4.8-10.8)
[2022-11-25 07:29] LABS: Platelet Count 43 10x3/uL (130-400)
[2022-11-25 07:31] LABS: Delete Auto Diff?? YES; Manual Diff?? YES
[2022-11-25 07:38] LABS: ALT (SGPT) 61 U/L (8-55); AST (SGOT) 97 U/L (5-34); Albumin 2.6 g/dL (3.5-5.0); Alkaline Phosphatase 1554 U/L (40-110); Anion Gap 15 mmol/L (10-20); BUN (Urea Nitrogen) 16 mg/dL (8.9-20.6); Bilirubin, Total 5.5 mg/dL (0.2-1.2); Calc. Creatinine Clearance 164 mL/min (70-130); Calcium 8.3 mg/dL (7.8-10.44); Carbon Dioxide 18 mmol/L (22-29); Chloride 104 mmol/L (98-107); Estimated GFR 117; Globulin 2.8 g/dL (2.4-3.5); Glucose 110 mg/dL (70-105); Potassium 3.8 mmol/L (3.5-5.1); Protein, Total 5.4 g/dL (6.0-8.3); Sodium 133 mmol/L (136-145)
[2022-11-25 08:29] LABS: Anisocytosis MODERATE=16-30 cells HPF (0-5); Band 31 % (5-11); CellaVision Operator ID LAB.GE; Eosinophils 4 % (0-10); Lymphocytes 9 % (21-51); Metamyelocyte 5 % (0-0); Monocytes 5 % (0-10); Myelocyte 13 % (0-0); Neutrophil 31 % (42-75); Nucleated RBC (Manual Ct) 33 % (0); Platelet Adequacy Comment Platelets Decreased; Polychromasia MARKED = >4 cells HPF (0-2); Reactive Lymphocytes 1 % (0-10); Schistocytes MODERATE= 6-15 cells HPF (0-1); Total Cell Count 105; Toxic Granulation SLIGHT
[2022-11-25] MEDS: Pantoprazole 40 MG VIAL IVP SCH ×2 (09:15→20:36)
[2022-11-25] MEDS: Pregabalin 50 MG CAP PO SCH ×2 (09:15→20:38)
[2022-11-25] MEDS: Lactated Ringer's 1,000 ML IV SCH (09:51)
[2022-11-25 16:17] LABS: Hematocrit 23.2 % (42.0-52.0); Hemoglobin 7.9 g/dL (14.0-18.0); Mean Corpuscular HGB CONC 34.1 g/dL (32.0-36.0); Mean Corpuscular Hemoglobin 32.5 pg (27.0-31.0); Mean Corpuscular Volume 95.5 fl (78.0-98.0); Mean Platelet Volume 9.3 fL (7.4-10.4); RBC Distribution Width 21.3 % (11.5-14.5); Red Blood Cell (RBC) Count 2.43 mill/uL (4.70-6.10); White Blood Cell (WBC) Count 7.7 10x3/uL (4.8-10.8)
[2022-11-25 16:21] LABS: Delete Auto Diff?? YES; Manual Diff?? YES; Platelet Count 47 10x3/uL (130-400)
[2022-11-25 16:22] LABS: Platelet Count 47 10x3/uL (130-400)
[2022-11-25 16:32] LABS: Fibrinogen 411 mg/dL (253-463)
[2022-11-25 16:33] LABS: INR-International Normal Ratio 1.8; Prothrombin Time 21.5 sec (12.0-14.7)
[2022-11-25 16:34] LABS: PTT 53.1 sec (22.9-36.1)
[2022-11-25 16:45] LABS: Anisocytosis SLIGHT = 6-15 cells HPF (0-5); Band 24 % (5-11); Burr Cells SLIGHT = 2-5 cells HPF (0-1); CellaVision Operator ID LAB.MJL; Eosinophils 1 % (0-10); Lymphocytes 12 % (21-51); Macrocytosis SLIGHT = 6-15 cells HPF (0-5); Metamyelocyte 4 % (0-0); Monocytes 5 % (0-10); Myelocyte 9 % (0-0); Neutrophil 42 % (42-75); Nucleated RBC (Manual Ct) 19 % (0); Ovalocytes SLIGHT = 2-5 cells HPF (0-1); Platelet Adequacy Comment Platelets Decreased; Poikilocytosis SLIGHT = 6-15 cells HPF (0-5); Polychromasia MODERATE = 3-4 cells HPF (0-2); Promyelocytes 2 % (0-0); Reflex for Review?? YES; Schistocytes MODERATE= 6-15 cells HPF (0-1); Spherocytes SLIGHT = 1-5 cells HPF (None Seen); Total Cell Count 100
[2022-11-25 16:53] LABS: D-Dimer Test Greater than 20.00 *mcg/mL (0.27-0.43)
[2022-11-25] MEDS: HYDROcodone/Acetaminophen 5/325 mg Tablet PO PRN ×2 (17:08→20:37)
[2022-11-26 05:22] LABS: Hematocrit 21.6 % (42.0-52.0); Hemoglobin 7.7 g/dL (14.0-18.0); Mean Corpuscular HGB CONC 35.6 g/dL (32.0-36.0); Mean Corpuscular Hemoglobin 33.3 pg (27.0-31.0); Mean Corpuscular Volume 93.5 fl (78.0-98.0); RBC Distribution Width 22.8 % (11.5-14.5); Red Blood Cell (RBC) Count 2.31 mill/uL (4.70-6.10); White Blood Cell (WBC) Count 8.8 10x3/uL (4.8-10.8)
[2022-11-26 05:25] LABS: Delete Auto Diff?? YES; Manual Diff?? YES; Platelet Count 29 10x3/uL (130-400)
[2022-11-26 05:55] LABS: ALT (SGPT) 74 U/L (8-55); AST (SGOT) 125 U/L (5-34); Albumin 2.7 g/dL (3.5-5.0); Alkaline Phosphatase 1635 U/L (40-110); Anion Gap 15 mmol/L (10-20); BUN (Urea Nitrogen) 19 mg/dL (8.9-20.6); Bilirubin, Total 10.4 mg/dL (0.2-1.2); Calc. Creatinine Clearance 164 mL/min (70-130); Calcium 8.7 mg/dL (7.8-10.44); Carbon Dioxide 19 mmol/L (22-29); Chloride 105 mmol/L (98-107); Estimated GFR 117; Globulin 3.1 g/dL (2.4-3.5); Glucose 124 mg/dL (70-105); Potassium 4.2 mmol/L (3.5-5.1); Protein, Total 5.8 g/dL (6.0-8.3); Sodium 135 mmol/L (136-145)
[2022-11-26 05:59] LABS: Band 24 % (5-11); Eosinophils 2 % (0-10); Lymphocytes 17 % (21-51); Metamyelocyte 5 % (0-0); Monocytes 3 % (0-10); Myelocyte 3 % (0-0); Neutrophil 40 % (42-75); Nucleated RBC (Manual Ct) 21 % (0); Promyelocytes 2 % (0-0); Reactive Lymphocytes 3 % (0-10)
[2022-11-26] MEDS: Cefepime 2 GM in Sodium Chloride 0.9% 100 ML IVPB SCH ×2 (05:59→15:23)
[2022-11-26 06:00] LABS: Hypochromia SLIGHT = 6-15 cells (100X) (0-5/hpf); Platelet Adequacy Comment Appears Decreased
[2022-11-26] MEDS: Pregabalin 50 MG CAP PO SCH ×2 (07:28→23:00)
[2022-11-26] MEDS: Pantoprazole 40 MG VIAL IVP SCH ×2 (07:29→22:10)
[2022-11-26] MEDS: Lactated Ringer's 1,000 ML IV SCH (07:30)
[2022-11-26] MEDS: Morphine 2 MG/ML VIAL SLOW IVP PRN ×2 (16:10→22:13)
[2022-11-26] MEDS: fentaNYL 50 mcg/hour Patch TD SCH (22:59)
[2022-11-27] MEDS: Lactated Ringer's 1,000 ML IV SCH ×3 (01:39→21:25)
[2022-11-27] MEDS: Morphine 2 MG/ML VIAL SLOW IVP PRN ×3 (02:58→15:53)
[2022-11-27] MEDS: Cefepime 2 GM in Sodium Chloride 0.9% 100 ML IVPB SCH ×2 (03:01→15:35)
[2022-11-27 04:17] LABS: #Basophils 0.1 thou/uL (0.0-0.2); #Eosinphils 0.1 thou/uL (0.0-0.7); #Neutrophils 6.1 thou/uL (1.40-6.50); %Basophils 0.5 % (0.0-1.0); %Eosinophils 0.6 % (0.0-10.0); %Lymphocytes 16.9 % (21.0-51.0); %Monocytes 8.9 % (0.0-10.0); Hematocrit 18.7 % (42.0-52.0); Hemoglobin 6.3 g/dL (14.0-18.0); Mean Corpuscular HGB CONC 33.7 g/dL (32.0-36.0); Mean Corpuscular Hemoglobin 32.3 pg (27.0-31.0); Mean Corpuscular Volume 95.9 fl (78.0-98.0); Mean Platelet Volume 9.6 fL (7.4-10.4); Red Blood Cell (RBC) Count 1.95 mill/uL (4.70-6.10); White Blood Cell (WBC) Count 10.9 10x3/uL (4.8-10.8)
[2022-11-27 04:22] LABS: Platelet Count 48 10x3/uL (130-400)
[2022-11-27 04:23] LABS: Manual Diff?? YES
[2022-11-27] MEDS ORDERED: Acetaminophen 650 MG Suppository PR PRN (04:31)
[2022-11-27 04:37] LABS: ALT (SGPT) 96 U/L (8-55); AST (SGOT) 187 U/L (5-34); Albumin 2.8 g/dL (3.5-5.0); Alkaline Phosphatase 1487 U/L (40-110); Anion Gap 18 mmol/L (10-20); BUN (Urea Nitrogen) 26 mg/dL (8.9-20.6); Bilirubin, Total 11.6 mg/dL (0.2-1.2); Calc. Creatinine Clearance 141 mL/min (70-130); Calcium 8.6 mg/dL (7.8-10.44); Carbon Dioxide 15 mmol/L (22-29); Chloride 106 mmol/L (98-107); Estimated GFR 112; Glucose 141 mg/dL (70-105); Potassium 4.2 mmol/L (3.5-5.1); Protein, Total 5.8 g/dL (6.0-8.3); Sodium 135 mmol/L (136-145)
[2022-11-27] MEDS: Pregabalin 50 MG CAP PO SCH ×2 (07:45→20:51)
[2022-11-27] MEDS: Pantoprazole 40 MG VIAL IVP SCH ×2 (07:46→20:52)
[2022-11-27 07:57] VITALS: BP 132/73
[2022-11-27 08:11] LABS: Band 18 % (5-11); Eosinophils 2 % (0-10); Lymphocytes 14 % (21-51); Monocytes 18 % (0-10); Myelocyte 1 % (0-0); Neutrophil 47 % (42-75); Nucleated RBC (Manual Ct) 19 % (0)
[2022-11-27 08:15] LABS: Anisocytosis MODERATE=16-30 cells (100X) (0-5/hpf); Polychromasia MODERATE = 3-4 cells (100X) (0-2/hpf)
[2022-11-27 08:16] LABS: Ovalocytes SLIGHT = 2-5 cells (100X) (0-1/hpf)
[2022-11-27 08:17] LABS: Platelet Adequacy Comment Significant decrease; Schistocytes SLIGHT = 2-5 cells (100X) (0-1/hpf); Smudge Cells SLIGHT; Spherocytes SLIGHT = 1-5 cells (100X) (None Seen)
[2022-11-27 12:13] LABS: Hematocrit 24.5 % (42.0-52.0); Hemoglobin 8.2 g/dL (14.0-18.0)
[2022-11-27] MEDS: HYDROcodone/Acetaminophen 5/325 mg Tablet PO PRN (19:14)
[2022-11-28] MEDS: Morphine 2 MG/ML VIAL SLOW IVP PRN ×2 (01:26→10:59)
[2022-11-28] MEDS: Cefepime 2 GM in Sodium Chloride 0.9% 100 ML IVPB SCH (03:32)
[2022-11-28 05:45] LABS: Hematocrit 21.7 % (42.0-52.0); Hemoglobin 7.1 g/dL (14.0-18.0); Mean Corpuscular HGB CONC 32.7 g/dL (32.0-36.0); Mean Corpuscular Hemoglobin 31.6 pg (27.0-31.0); Mean Corpuscular Volume 96.4 fl (78.0-98.0); RBC Distribution Width 26.9 % (11.5-14.5); Red Blood Cell (RBC) Count 2.25 mill/uL (4.70-6.10); White Blood Cell (WBC) Count 11.4 10x3/uL (4.8-10.8)
[2022-11-28 05:48] LABS: Delete Auto Diff?? YES; Manual Diff?? YES; Platelet Count 25 10x3/uL (130-400)
[2022-11-28 06:14] LABS: ALT (SGPT) 147 U/L (8-55); AST (SGOT) 370 U/L (5-34); Albumin 2.8 g/dL (3.5-5.0); Alkaline Phosphatase 1480 U/L (40-110); Anion Gap 22 mmol/L (10-20); BUN (Urea Nitrogen) 42 mg/dL (8.9-20.6); Bilirubin, Total 15.7 mg/dL (0.2-1.2); Calc. Creatinine Clearance 119 mL/min (70-130); Calcium 9.3 mg/dL (7.8-10.44); Carbon Dioxide 12 mmol/L (22-29); Chloride 108 mmol/L (98-107); Estimated GFR 107; Globulin 3.5 g/dL (2.4-3.5); Glucose 137 mg/dL (70-105); Potassium 5.4 mmol/L (3.5-5.1); Protein, Total 6.3 g/dL (6.0-8.3); Sodium 137 mmol/L (136-145)
[2022-11-28 06:23] LABS: Band 22 % (5-11); CellaVision Operator ID LAB.CLH1; Eosinophils 2 % (0-10); Helmet Cells SLIGHT = 2-5 cells HPF (0-1); Hypochromia SLIGHT = 6-15 cells HPF (0-5); Lymphocytes 17 % (21-51); Metamyelocyte 2 % (0-0); Monocytes 6 % (0-10); Myelocyte 8 % (0-0); Neutrophil 34 % (42-75); Nucleated RBC (Manual Ct) 41 % (0); Platelet Adequacy Comment Platelets Decreased; Poikilocytosis MODERATE=16-30 cells HPF (0-5); Polychromasia MODERATE = 3-4 cells HPF (0-2); Promyelocytes 5 % (0-0); Reflex for Review?? YES; Schistocytes SLIGHT = 2-5 cells HPF (0-1); Total Cell Count 102
[2022-11-28 07:56] VITALS: TEMP 98.4
[2022-11-28] MEDS: Pregabalin 50 MG CAP PO SCH ×2 (09:42→09:51)
[2022-11-28] MEDS: Pantoprazole 40 MG VIAL IVP SCH (09:42)
== END 2022-11-28 14:41 | disposition expired | DRG 374 ==
LOC: ERS 12:24 → ERHOLD 16:20 → IMCU/EMU 20:49
PROVIDERS: ADMIT Hospitalist; ATTEND Internal Medicine
PROC: 30233R1 Transfusion of Nonautologous Platelets into Peripheral Vein, Percutaneous Approach (ICD-10-PCS; principal; 2022-11-22)
PROC: 30233N1 Transfusion of Nonautologous Red Blood Cells into Peripheral Vein, Percutaneous Approach (ICD-10-PCS; 2022-11-22)
PROC: 3E03329 Introduction of Other Anti-infective into Peripheral Vein, Percutaneous Approach (ICD-10-PCS; 2022-11-22)
PROC: 6A551Z2 Pheresis of Platelets, Multiple (ICD-10-PCS; 2022-11-23)
DX: C16.9 Malignant neoplasm of stomach, unspecified (principal); A41.9 Sepsis, unspecified organism; E43 Unspecified severe protein-calorie malnutrition; G93.41 Metabolic encephalopathy; J18.9 Pneumonia, unspecified organism; I62.03 Nontraumatic chronic subdural hemorrhage; D61.818 Other pancytopenia; E87.1 Hypo-osmolality and hyponatremia; G96.08 Other cranial cerebrospinal fluid leak; C78.7 Secondary malignant neoplasm of liver and intrahepatic bile duct; C79.51 Secondary malignant neoplasm of bone; D62 Acute posthemorrhagic anemia; E87.20 Acidosis, unspecified; Z66 Do not resuscitate; Z51.5 Encounter for palliative care; Z79.899 Other long term (current) drug therapy; E87.5 Hyperkalemia; Z86.711 Personal history of pulmonary embolism; E86.0 Dehydration; D63.0 Anemia in neoplastic disease; R53.81 Other malaise; R74.01 Elevation of levels of liver transaminase levels; K76.82 Hepatic encephalopathy; Z68.24 Body mass index [BMI] 24.0-24.9, adult
CPT/HCPCS: 36415; 36430; 70450; 71045; 74176; 76705; 77014; 77290; 77307; 77334; 77412; 80053; 81001; 82140; 82248; 82274; 82805; 83010; 83615; 83735; 84145; 85025; 85046; 85049; 85060; 85300; 85362; 85379; 85384; 85610; 85730; 86850; 86900; 86901; 87449; 87899; 93005; 96361; 96365; 96366; 96367; 96375; C9113; J0692; J2272; J3475; J3490; J7120; P9016; P9035